=== PATIENT | male | born 1995 ===

== ENCOUNTER → 2017-09-09 | Outpatient (CLI) | payer OTHER ==
[2017-09-09 18:45] LABS: BASOPHILS ABSOLUTE AUTO 0.06 K/mm3 (0.00-0.23); BASOPHILS PERCENT AUTO 1 % (0-2); EOSINOPHILS ABSOLUTE AUTO 0.27 K/mm3 (0.00-0.68); EOSINOPHILS PERCENT AUTO 2 % (0-6); Hematocrit 42.9 % (37.0-53.0); IMMATURE GRAN ABSOLUTE AUTO 0.08 K/mm3 (0.00-0.10); IMMATURE GRAN PERCENT AUTO 1 % (0-1); LYMPHOCYTES ABSOLUTE AUTO 2.95 K/mm3 (0.84-5.20); LYMPHOCYTES PERCENT AUTO 24 % (21-46); MONOCYTES ABSOLUTE AUTO 0.56 K/mm3 (0.16-1.47); MONOCYTES PERCENT AUTO 5 % (4-13); Mean Corpuscular HGB 29.7 pg (26.0-34.0); Mean Corpuscular HGB Conc 32.6 g/dL (31.5-36.5); Mean Corpuscular Volume 91 fL (80-100); Mean Platelet Volume 9.7 fL (9.1-12.4); NEUTROPHILS ABSOLUTE AUTO 8.52 K/mm3 (1.96-9.15); NEUTROPHILS PERCENT AUTO 69 % (41-73); Platelet Count 286 K/mm3 (150-400); RDW Coefficient Variation 12.4 % (11.7-14.2); RDW Standard Deviation 41.1 fL (35.1-46.3); Red Blood Cell Count 4.71 M/mm3 (4.30-5.90); White Blood Cell Count 12.44 K/mm3 (4.00-11.30)
[2017-09-09 19:05] LABS: Alanine Aminotransfer (ALT/SGP 92 U/L (12-78); Albumin, Blood 3.9 g/dL (3.4-5.0); Albumin/Globulin Ratio 0.9 (0.8-1.8); Alk Phos 67 U/L (50-136); Anion Gap 4 mmol/L (6-16); Aspartate Aminotrans (AST/SGOT 79 U/L (12-37); Bilirubin, Total 0.5 mg/dL (0.1-1.0); Blood Urea Nitrogen 11 mg/dL (8-24); Bun/Creatinine Ratio 16.8 (12.0-20.0); CHOL/HDL RATIO 4.6; CO2, Blood 29 mmol/L (21-32); Calcium, Blood 8.7 mg/dL (8.5-10.1); Chloride, Blood 104 mmol/L (98-108); Cholesterol 161 mg/dL (50-200); Creatinine, Blood 0.66 mg/dL (0.60-1.20); Globulin, Blood 4.2 g/dL (2.2-4.0); Glomerular Filtration Rate >60 (60-); Glucose, Blood 148 mg/dL (70-99); HDL Cholesterol 35 mg/dL (>39); LDL/HDL RATIO 2.8; Low Density Lipoprotein Chol 98 mg/dL (0-110); Potassium, Blood 3.7 mmol/L (3.5-5.5); Sodium, Blood 137 mmol/L (136-145); Total Protein, Blood 8.1 g/dL (6.4-8.2); Triglycerides 140 mg/dL (30-140); Very Low Density Lipoprot Chol 28 mg/dL (6-28)
[2017-09-09 19:12] LABS: Thyroid Stimulating Hormone 0.744 uIU/mL (0.360-4.800)
== END | disposition home or self-care (01) ==
LOC: LAB 11:13 → LAB SHORT 11:13
PROVIDERS: Nurse Practitioner Adult Health
DX: E11.65 Type 2 diabetes mellitus with hyperglycemia (principal); N92.6 Irregular menstruation, unspecified
CPT/HCPCS: 80053; 80061; 84439; 84443; 85025

== ENCOUNTER → 2017-10-06 | Outpatient (CLI) | payer OTHER | LOC: LAB 17:26 → LAB SHORT 17:26 | PROVIDERS: Registered Nurse Community Health | DX: Z12.4 Encounter for screening for malignant neoplasm of cervix (principal); N92.6 Irregular menstruation, unspecified | CPT/HCPCS: G0123 ==